=== PATIENT | female | born 1935 | race Caucasian/White ===

== ENCOUNTER 2017-10-19 14:55 | Observation (INO) ==
[2017-10-19] MEDS ORDERED: Acetaminophen 325 MG TABLET PO PRN (17:22)
[2017-10-19] MEDS ORDERED: traMADol 50 MG TABLET PO PRN (17:22)
[2017-10-19] MEDS ORDERED: Naloxone 0.4 MG/ML INJ IVP PRN (17:22)
--- NOTE | 2017-10-19 17:40 | Internal Med History&Physical ---
<Myron Gray - Last Filed: 10/19/17 19:14> Date of Encounter: 10/19/17 Time of Encounter: 17:33 Internal Medicine - H&P: HPI Admitted From: Home Plans for Post Hospital Care: Home History of present illness: Ms. Baker is a 82 year old female with no significant past medical history transferred from [facility] because of acute onset atrial fibrillation. She was at her usual health state until today, she suddenly feel dyspnea. She reported she failed not being able to catch up breath. But she denies chest pain , palpitation, or syncope. She has no cough, wheezing, or fever. Family sent her to [facility], where EKG revealed atrial fibrillation with heart rate above 130. She was started on heparin and Cardizem drip and was subsequently transferred to this hospital. Upon arrival to this hospital, her vital signs were stable except heart rate was between 100-130. All labs are currently pending. She will remain as inpatient hospital for further management. Past Med Surg Social Fam HX - Family History Mother Name: estefanía Penn Living Status: Age at : 87 Hx Family GI Disorders: Yes Internal Medicine - H&P: Meds 3 Allergy/AdvReac Type Severity Reaction Status Date / Time No Known Drug Allergies Allergy See Verified 10/19/17 18:24 Comments All Systems PM: A 10-system review of systems was performed and is negative for pertinent findings except as documented above in the HPI. Review of systems: REVIEW OF SYSTEMS: CONSTITUTIONAL: No weight loss, fever, chills, weakness or fatigue. HEENT: Eyes: No visual loss, blurred vision, double vision or yellow sclerae. Ears, Nose, Throat: No hearing loss, sneezing, congestion, runny nose or sore throat. SKIN: No rash or itching. CARDIOVASCULAR: No chest pain, chest pressure or chest discomfort. No palpitations or edema. RESPIRATORY: No shortness of breath, cough or sputum. GASTROINTESTINAL: No anorexia, nausea, vomiting or diarrhea. No abdominal pain or blood. GENITOURINARY: No dysuria, urgency, or frequency. NEUROLOGICAL: No headache, dizziness, syncope, paralysis, ataxia, numbness or tingling in the extremities. No change in bowel or bladder control. MUSCULOSKELETAL: No muscle, back pain, joint pain or stiffness. HEMATOLOGIC: No anemia, bleeding or bruising. LYMPHATICS: No enlarged nodes. No history of splenectomy. PSYCHIATRIC: No history of depression or anxiety. ENDOCRINOLOGIC: No reports of sweating, cold or heat intolerance. No polyuria or polydipsia. - Head Head exam: Present: atraumatic, normocephalic - Eye Eye exam: Present: PERRL, conjuntiva pink, sclera anicteric Pupils: Present: PERRL - Neck Neck exam general surgery: Present: supple, trachea midline. Absent: lymphadenopathy - Respiratory Respiratory exam: Present: CTAB. Absent: accessory muscle use, rales, rhonchi, wheezes - Cardiovascular Cardiovascular exam: Present: RRR, +S1, +S2. Absent: diastolic murmur, gallop, rubs, systolic murmur - GI/Abdominal GI/Abdominal exam: Present: normal bowel sounds, soft, no peritoneal signs. Absent: distended, tenderness - Extremities Exam Extremities exam: Present: warm, radial pulses palpable and symmetrical. Absent : calf tenderness, cyanotic, pedal edema - Neurological Exam Neurological exam: Present: CN II-XII intact, oriented X3, no focal deficits. Absent: pronater drift, facial droop, speech deficit - Skin Skin exam: Present: dry, intact Internal Med - H&P Results - Labs CBC & Chem 7: 10/19/17 17:54 - Assessment and plan (1) Atrial fibrillation with rapid ventricular response Current Visit: No Status: Acute Assessment and plan: - New onset of Afib with RVR. No hx of valvular disease. Onset less than 24 hours. - continue cardizem and heparin gtt, add po cardizem. - TSH ordered, TTE ordered. - cardio consulted. - Time Spent With Patient Total time spent is greater than 50% in coordination of care (as documented) at patient's floor/unit and/or counseling patient: Greater than 35 minutes <Eric Orourke - Last Filed: 10/19/17 23:18> Date of Encounter: 10/19/17 Internal Medicine - H&P: HPI History of present illness: Ms. Baker is a 82 year old female All Systems PM: A 10-system review of systems was performed and is negative for pertinent findings except as documented above in the HPI. - Constitutional Vitals: Temp Pulse Resp BP Pulse Ox 98.2 F 98 16 145/79 94 10/19/17 19:38 10/19/17 19:38 10/19/17 19:38 10/19/17 19:38 10/19/17 19:38 Internal Med - H&P Results - Labs CBC & Chem 7: 10/19/17 17:54 10/19/17 18:55 Labs: Short CBC 10/19/17 Range/Units 17:54 WBC 8.4 (4.3-11.1) K/mcL Hgb 12.3 (11.5-15.4) g/dL Hct 39.9 (35.3-44.9) % Plt Count 231 (140-400) K/mcL Neutrophils # 5.6 (1.6-8.9) K/mcL BMP 10/19/17 18:55 Sodium 138 Potassium 3.8 Chloride 102 Carbon Dioxide 28 BUN 18 Creatinine 0.70 Glucose 157 H Calcium 9.3 - Attending Attestation I have personally performed a face to face evaluation on this patient. I have reviewed and agree with the care plan provided by ANTHONY Gray. History and Exam by me shows: Ms. Baker is a 82 year old female with no significant past medical history transferred from [facility] because of acute onset atrial fibrillation. Pt denied any CP / SOB. She denied any palpitations. Never had any medical problems. Gen: A, A, O x 3 Chest: Diminished BS b/l no crackles, no rales Heart: S1S2+ Irregular rate and rythm a/p 1. Acute new onset Afib with RVR Suspecting possible chronic A fib cont on tele check serial trop -- need to r/o ACS 2 D Echo in AM Wean her off cardizem gtt PO Cardizem CHADVASC 2 on Heparin for anti coag - Assessment and plan (1) Atrial fibrillation with rapid ventricular response Current Visit: No Status: Acute - Time Spent With Patient Total time spent is greater than 50% in coordination of care (as documented) at patient's floor/unit and/or counseling patient:
[2017-10-19 18:02] LABS: Basophils % 0.4 %; Eosinophils # 0.2 K/mcL (0.0-0.6); Eosinophils % 1.9 %; Hematocrit 39.9 % (35.3-44.9); Hemoglobin 12.3 g/dL (11.5-15.4); Immature Granulocytes % 0.2 % (0-4); Lymphocytes # 1.9 K/mcL (0.6-4.6); Lymphocytes % 22.1 %; Mean Corpuscular HGB Conc 30.8 g/dL (31.6-35.5); Mean Corpuscular Hemoglobin 26.5 pg (28.0-33.3); Mean Corpuscular Volume 85.8 fL (83.0-100.0); Mean Platelet Volume 10.4 fL (9.4-12.4); Monocytes # 0.7 K/mcL (0.0-1.3); Monocytes % 8.2 %; Neutrophils # 5.6 K/mcL (1.6-8.9); Platelet Count 231 K/mcL (140-400); Red Blood Count 4.65 M/mcL (3.82-4.97); Red Cell Distribution Width 13.9 % (11.5-14.5); Segmented Neutrophils % 67.2 %
[2017-10-19] MEDS ORDERED: *HR* Heparin 5,000 UNIT/ML VIAL IVP PRN ×2 (19:15)
[2017-10-19] MEDS ORDERED: *HR* Heparin 5,000 UNIT/ML VIAL IVP ONE (19:15)
[2017-10-19] MEDS ORDERED: Heparin 25,000 UNIT/500 ML D5W 25,000 UNIT/500 ML BAG IVC SCH (19:30)
[2017-10-19 19:31] LABS: BUN/Creatinine Ratio 26 (6-26); Blood Urea Nitrogen 18 mg/dL (8-23); Calcium 9.3 mg/dL (8.6-10.3); Carbon Dioxide 28 mEq/L (23-29); Chloride 102 mEq/L (98-107); Glucose 157 mg/dL (70-105); Osmolality,Calculated 291 (280-300); Potassium 3.8 mEq/L (3.5-5.1); Sodium 138 mEq/L (136-145); eGFR For African Americans > 60 (> 60); eGFR For Non-African Americans > 60 (> 60)
[2017-10-19 19:43] LABS: Thyroid Stimulating Hormone 3.142 mcIU/mL (0.340-5.600)
[2017-10-20] MEDS: Diltiazem SR (12hr) 60 MG CAPSULE PO SCH ×2 (06:42→08:29)
[2017-10-20 09:11] LABS: Activated Partial Thrombo Time 135.4 Seconds (26.0-36.0)
[2017-10-20 09:39] LABS: Heparin anti-factor XA UFH 0.72 IU/mL (0.30-0.70)
--- NOTE | 2017-10-20 12:44 | Cardiology Consult Note ---
<NataliaGreg fofana R - Last Filed: 10/20/17 13:00> Date of Encounter: 10/20/17 Time of Encounter: 12:43 Assessment and Plan (1) Atrial fibrillation with rapid ventricular response Status: Acute Presumably new onset A-Fib RVR. Presented with 2-3 weeks progressive worsening dyspnea, associated LE edema. Denies chest pain or dyspnea. No troponins were checked. Unable to locate EKG. Will order EKG. Initially started on cardizem gtt, now on PO. HR 90s currently on Cardizem SR 60mg BID. Switch to Cardizem CD 120mg daily. On heparin gtt. [id number] 3 (Age, HTN). High CVA risk. Recommend AC--coumadin vs. NOAC. Pt declines. R/B/A discussed and pt refuses chronic anticoagulation. Agreeable to ASA 81mg daily, but aware she is high risk for CVA. TTE pending. If no significant findings on TTE, anticipate sign off. Further recommendations to follow. Discussion w patient/family: The assessment and plan as outlined above was discussed with the patient and/or family members who expressed understanding and agreement. All questions were answered. Thank you for involving us in the care of your patient. Please call with any questions. I will discuss all the above with Dr. Lomeli and make changes as necessary. History of Present Illness Consult date: 10/20/17 Requesting physician: Eric Orourke Consult reason: A-Fib Chief complaint: dyspnea History of present illness: Ms. Baker is a 82 year old female with no significant past medical history transferred from [facility] because of acute onset atrial fibrillation. She reports she has had worsening dyspnea over the past 2-3 weeks and noticed LE edema. She denies chest pain, palpitation, or syncope. She has no cough, wheezing, or fever. Family sent her to [facility], where EKG revealed atrial fibrillation with heart rate above 130. She was started on heparin and Cardizem drip and was subsequently transferred to this hospital. She is now off Cardizem gtt and on PO Cardizem 60mg BID. HR 90s. On heparin gtt. Past Med Surg Social Fam HX - Past Medical History Medical history: no medical history Psychiatric history: no psych history - Past Surgical History Surgical History: no surgical history - Social History Smoking Status: Never smoker Smokeless Tobacco Status: No Alcohol use: none Drug use: none - Family History Mother Name: estefanía Penn Living Status: Age at : 87 Hx Family GI Disorders: Yes Medications and Allergies Aspirin Enteric Coated [Aspirin EC] 81 mg PO DAILY #30 tablet.dr 10/20/17 [Rx] Calcium Carb, Citrate/Vit D3 [Calcium + D3 ER Tablet] 1 tab PO DAILY 10/20/17 [ History] Diltiazem CD (24hr) [Cardizem CD] 120 mg PO DAILY #30 cap.er.24h 10/20/17 [Rx] Garlic [Odorless Garlic] 1,250 mg PO DAILY 10/20/17 [History] Multivitamin [Multivitamins] 1 tab PO DAILY 10/20/17 [History] Vitamin E 1,000 unit PO DAILY 10/20/17 [History] 3 Allergy/AdvReac Type Severity Reaction Status Date / Time No Known Drug Allergies Allergy See Verified 10/20/17 11:56 Comments All Systems Review: The remainder of the systems were reviewed and are negative - Cardiovascular Cardiovascular: dyspnea at rest, dyspnea on exertion, leg edema - Respiratory Respiratory: dyspnea Physical Examination Vital Signs, Last 4 Hours Temp Pulse Resp BP Pulse Ox 10/20/17 11:37 97.9 F 92 16 126/52 93 10/20/17 10:15 77 118/65 10/20/17 09:59 82 134/74 Vital Signs Temp Pulse Resp BP Pulse Ox 10/20/17 11:37 97.9 F 92 16 126/52 93 10/20/17 10:15 77 118/65 10/20/17 09:59 82 134/74 10/20/17 08:40 93 14 146/71 10/20/17 08:25 79 139/67 10/20/17 07:03 97.8 F 79 16 130/67 94 10/20/17 03:20 98.0 F 82 14 139/78 94 10/19/17 23:32 98.1 F 85 16 143/84 94 10/19/17 19:38 98.2 F 98 16 145/79 94 Intake and Output 10/19/17 10/20/17 10/20/17 23:59 07:59 15:59 Intake Total 580.9 / 580.9 Balance 580.9 / 580.9 Intake: IV Fluids 340.9 / 340.9 Cardizem 125 MG In 0.9 % Sodium 94.9 / 94.9 Chloride 100 ML @ 5 MG/HR 5 mls/hr IVC .Q24H ANGELA Rx#: [id number] Heparin 25,000 UNIT/500 ML D5W 246 / 246 25,000 unit In 500 ml @ 14 UNIT /KG/HR 21 mls/hr IVC .[id number] ANGELA Rx#:[id number] Oral 240 / 240 Other: Meal Breakfast Percent of Meal Consumed 100% Weight 77 kg 77 kg Patient Weight 10/20/17 23:59 Weight 77 kg General: Conversant, No Apparent Distress HEENT: Atraumatic, Normocephaly, Mucus Membranes Moist Neck: No JVD, Normal carotid pulses Cardiac: Other (irregularly irregular) Lungs: Normal Breath Sounds, No Wheeze, Rales, Rhonchi Neuro: Alert and responsive, No focal deficits noted Abdomen: Soft, Non-Tender Skin: No rashes noted on visualized skin Musculoskeletal: No Chest Wall Tenderness Extremities: No Clubbing, No Cyanosis, No Edema, Normal Pulses Results 10/19/17 17:54 10/19/17 18:55 Lab Results 10/19/17 10/19/17 10/19/17 17:54 17:54 18:55 WBC 8.4 Hgb 12.3 Hct 39.9 Plt Count 231 APTT 39.6 H Sodium 138 Potassium 3.8 Chloride 102 Carbon Dioxide 28 BUN 18 Creatinine 0.70 Glucose 157 H Calcium 9.3 TSH 3.142 10/20/17 08:29 WBC Hgb Hct Plt Count APTT 135.4 H* D Sodium Potassium Chloride Carbon Dioxide BUN Creatinine Glucose Calcium TSH Short CBC 10/19/17 Range/Units 17:54 WBC 8.4 (4.3-11.1) K/mcL Hgb 12.3 (11.5-15.4) g/dL Hct 39.9 (35.3-44.9) % Plt Count 231 (140-400) K/mcL Neutrophils # 5.6 (1.6-8.9) K/mcL BMP 10/19/17 Range/Units 18:55 Sodium 138 (136-145) mEq/L Potassium 3.8 (3.5-5.1) mEq/L Chloride 102 (98-107) mEq/L Carbon Dioxide 28 (23-29) mEq/L BUN 18 (8-23) mg/dL Creatinine 0.70 (0.60-1.20) mg/dL Glucose 157 H (70-105) mg/dL Calcium 9.3 (8.6-10.3) mg/dL Active Medications Acetaminophen (Tylenol) 650 mg PO Q6HR PRN PRN Reason: Mild Pain/Fever Stop: 04/20/18 17:23 Diltiazem HCl (Cardizem Sr) 60 mg PO BID ANGELA Stop: 04/20/18 21:01 Last Admin: 10/20/17 08:29 Dose: 60 mg Heparin Sodium (Porcine) (Heparin) 5,300 unit 70 unit/kg (5300 unit) IVP Q6HR PRN PRN Reason: SEE COMMENTS Stop: 04/20/18 19:16 Heparin Sodium (Porcine) (Heparin) 2,600 unit 35 unit/kg (2600 unit) IVP Q6H PRN PRN Reason: SEE COMMENTS Stop: 04/20/18 19:16 Heparin Sodium/Dextrose (Heparin 25,000 Unit/500 Ml D5w) 25,000 unit in 500 mls @ 21 mls/hr IVC .[id number] ANGELA; 14 UNIT/KG/HR PRN Reason: Protocol Stop: 04/20/18 19:31 Last Titration: 10/20/17 10:18 Dose: 10.66 unit/kg/hr, 16 mls/hr Diltiazem HCl 125 mg/ Sodium (Chloride) 125 mls @ 5 mls/hr IVC .Q24H ANGELA; 5 MG/ HR PRN Reason: Protocol Stop: 04/20/18 18:31 Last Titration: 10/20/17 09:59 Dose: 0 mg/hr, 0 mls/hr Naloxone HCl (Narcan) 0.4 mg IVP Q2MIN PRN PRN Reason: SEE COMMENTS Stop: 04/20/18 17:23 Tramadol HCl (Ultram) 50 mg PO Q6HR PRN PRN Reason: Moderate Pain Stop: 04/20/18 17:23 - Imaging and Cardiology Echo: pending Consult Discharge Plan - Plan Instructions: Diltiazem (By mouth), Aspirin (By mouth), Atrial Fibrillation (DC ), Epistaxis (DC) Referrals: Agustin Rizvi MD [Partnered Physician] - (Please call for a follow-up appointment if you have not heard from the office within 2-3 weeks) NONE,PCP [Primary Care Provider] - (Please call your primary care doctor within 7-10 days for follow-up appointment) Prescriptions: Aspirin Enteric Coated [Aspirin EC] 81 mg PO DAILY #30 tablet. Diltiazem CD (24hr) [Cardizem CD] 120 mg PO DAILY #30 cap.er.24h <Cruzito Lomeli - Last Filed: 10/27/17 20:47> Date of Encounter: 10/20/17 Time of Encounter: 18:00 - Attending Attestation I have personally performed a face to face evaluation on this patient. I have reviewed and agree with the care plan. History and Exam by me shows: CC dyspnea Pt reports two to three week history of increasing dyspnea on exertion, now occurring at rest. Shortness of breath prompted her evaluation in the ER. She reports she noticed increasing difficutly breathing with activity, and lower extremity edema, but denies chest pain, pressure or palpitations. She has no previous history of chest pain, pressure, [place], arrhythmia. She reports symptoms resolved with IV tx before she was transferred to [place]. She now resting comfortably, with no complaints PMhx: reviewed PE: pt seen and examined, chart reviewed, agree with findings as documented IMP 1. New onset A fib with RVR, symptomatic, present for unknown duration, likely two to three weeks, with sensation of shortness of breath with exertion. She reports no chest pain, pressure, or palpitations. She notes her chest does not feel right, but no overt cp. Her symptoms resolved with IV tx of diltiazem drip. 2. Lower extremity edema - new, suspect due to diastolic dysfunction with A fib with RVR, responding to IV diuretics. REC: Echo, switch to po dilt, check TSH, monitor daily weights, I&Os. Assessment and Plan Discussion w patient/family: The assessment and plan as outlined above was discussed with the patient and/or family members who expressed understanding and agreement. All questions were answered. Thank you for involving us in the care of your patient. Please call with any questions. History of Present Illness History of present illness: Ms. Baker is a 82 year old female All Systems Review: The remainder of the systems were reviewed and are negative Results 10/20/17 15:56 10/19/17 18:55
[2017-10-20] MEDS ORDERED: Aspirin Enteric Coated 81 MG Tablet PO SCH (13:15)
[2017-10-20] MEDS ORDERED: Diltiazem CD (24hr) 120 MG CAPSULE PO SCH (13:30)
[2017-10-20] MEDS ORDERED: Heparin 25,000 UNIT/500 ML D5W 25,000 UNIT/500 ML BAG IVC SCH (13:30)
[2017-10-20 14:44] VITALS: BP 127/77
--- NOTE | 2017-10-20 15:52 | Discharge Summary ---
- NOTES TO OUTPATIENT PROVIDER Notes to Outpatient Provider: Recommend follow-up in 7-10 days Orders not resulted at time of discharge: Pending orders 10/20/17 15:45 Hemoglobin and Hematocrit [HEME] Stat 10/20/17 16:15 PTT [Activated Partial Thrombo Time] [COAG] Timed Date of Encounter: 10/28/17 Time of Encounter: 15:49 - Discharge Diagnosis (1) Atrial fibrillation with rapid ventricular response Priority: Primary Status: Acute Comments: new onset. Symptomatic with dyspnea and lower extremity edema. Outside hospital EKG with A. fib, heart rates in 130s. Heparin and Cardizem gtt started prior to arrival. Rate controlled with diltiazem. TTE with EF 60%, indeterminate diastolic dysfunction and mild aortic sclerosis and mild tricuspid regurgitation. Evaluated by cardiology who noted [id number] 3 (Age, HTN) and high CVA risk. Anticoagulation was recommended however patient refused. She is agreeable to ASA 81 mg daily. Continue diltiazem, ASA. Follow -up with cardiology outpatient. (2) Epistaxis Priority: Primary Status: Acute Comments: on day prior to admission and one episode while hospitalized. Bleeding stopped with pressure. Etiology unknown. Hgb stable. Recommend ENT consult if bleeding occurs Hospital course: See assessment and plan for Hospital course Discharge discussed with: patient (Seen and examined at bedside. Patient is new to me, information obtained from chart review and patient report. Patient says she feels better and wants to go home today. Denies chest pain, no shortness of breath, no palpitations. I also discussed with her the risk of CVA with A. fib and recognition of anticoagulation. Patient continues to refuse. Of note patient did have a nosebleed yesterday which prompted hospital admission. She also had another episode while inpatient at [facility].) - Time Spent with Patient Total time spent providing and/or coordinating discharge services: - Discharge Medications Prescriptions: Aspirin Enteric Coated [Aspirin EC] 81 mg PO DAILY #30 tablet.dr Tea TOMLINSON (24hr) [Cardizem CD] 120 mg PO DAILY #30 cap.er.24h Home Medications: Aspirin Enteric Coated [Aspirin EC] 81 mg PO DAILY #30 tablet. 10/20/17 [Rx] Calcium Carb, Citrate/Vit D3 [Calcium + D3 ER Tablet] 1 tab PO DAILY 10/20/17 [ History] Diltiazem CD (24hr) [Cardizem CD] 120 mg PO DAILY #30 cap.er.24h 10/20/17 [Rx] Garlic [Odorless Garlic] 1,250 mg PO DAILY 10/20/17 [History] Multivitamin [Multivitamins] 1 tab PO DAILY 10/20/17 [History] Vitamin E 1,000 unit PO DAILY 10/20/17 [History] Allergies/Adverse Reactions: 3 Allergy/AdvReac Type Severity Reaction Status Date / Time No Known Drug Allergies Allergy See Verified 10/20/17 11:56 Comments Date of admission: 10/19/17 18:08 Primary care physician: PCP NONE Consults: 10/20/17 08:15 Consult to Cardiology [CONS] Routine Comment: Consulting Provider: Cardiology [facility] Reason for Consult: new onset a-fib Call Completed: Yes Discharging clinician: Lavonne Zabala Anticipated date of discharge: 10/20/17 - Constitutional Vitals: Temp Pulse Resp BP Pulse Ox 97.9 F 87 16 127/77 93 10/20/17 11:37 10/20/17 14:43 10/20/17 11:37 10/20/17 14:43 10/20/17 11:37 General appearance: Present: A&O X 3 - Head Head exam: Present: atraumatic, normocephalic - Eye Eye exam: Present: PERRL, conjuntiva pink, sclera anicteric Pupils: Present: PERRL - Neck Neck exam general surgery: Present: supple, trachea midline. Absent: lymphadenopathy - Respiratory Respiratory exam: Present: CTAB. Absent: accessory muscle use, rales, rhonchi, wheezes - Cardiovascular Cardiovascular exam: Present: irregular rhythm, +S1, +S2. Absent: diastolic murmur, gallop, rubs, systolic murmur - GI/Abdominal GI/Abdominal exam: Present: normal bowel sounds, soft, no peritoneal signs. Absent: distended, tenderness - Extremities Exam Extremities exam: Present: warm, radial pulses palpable and symmetrical. Absent : calf tenderness, cyanotic, pedal edema - Neurological Exam Neurological exam: Present: CN II-XII intact, oriented X3, no focal deficits. Absent: pronater drift, facial droop, speech deficit - Skin Skin exam: Present: dry, intact - Patient Status Disposition: Home, Self-Care Condition: Good Functional capacity at discharge: independent ambulation Overall status at discharge: patient is back to baseline - Discharge Instructions Instructions: Diltiazem (By mouth), Aspirin (By mouth), Atrial Fibrillation (DC ), Epistaxis (DC) Follow Up With: NONE,PCP [Primary Care Provider] - (Please call your primary care doctor within 7-10 days for follow-up appointment) Agustin Rizvi MD [Partnered Physician] - (Please call for a follow-up appointment if you have not heard from the office within 2-3 weeks) Forms: Inpatient Work/School Release - Diet and Activity Activity: increase activity as tolerated Diet: advance to your usual diet
[2017-10-20 16:13] LABS: Hematocrit 35.5 % (35.3-44.9)
== END 2017-10-20 17:47 | disposition home or self-care (01) | DRG 310 ==
LOC: 3BNU
PROVIDERS: ADMIT Internal Medicine; ATTEND Registered Nurse